=== PATIENT | male | born 1970 | race Caucasian/White ===

== ENCOUNTER 2020-01-01 09:11 | Emergency (ER) | payer MEDICAID, MEDICARE ==
[~2020-01-01] VITALS: Ht 167.6 cm; Wt 84.9 kg
[2020-01-01] MEDS ORDERED: ONDANSETRON 2MG/ML, 2ML IVPush ONE (09:30)
[2020-01-01] MEDS ORDERED: MORPHINE SULFATE 4 MG/ML, 1ML IVPush PRN (09:30)
[2020-01-01] MEDS ORDERED: SODIUM CHLORIDE FLUSH 10ML SYR IVF ONE (09:30)
[2020-01-01] MEDS ORDERED: KETOROLAC 30 MG/1 ML IVPush ONE (09:30)
[2020-01-01] MEDS ORDERED: ONDANSETRON 2MG/ML, 2ML ONE (09:46)
[2020-01-01] MEDS ORDERED: KETOROLAC 30 MG/1 ML ONE (09:46)
[2020-01-01] MEDS ORDERED: MORPHINE SULFATE 4 MG/ML, 1ML ONE (09:46)
--- NOTE | 2020-01-01 10:00 | NUR ---
ATTEMPTING TO START IV AND PT CRYING STATING "IT JUST FUCKING HURTS" JERKED ARM AND IV INFILTRATED, RN REQUESTED PT STAY STILL, PT STATED "JUST DO YOUR FUCKING JOB YOU HAVE A ROAD MAP, MY VEINS ARE HUGE", RN EDUCATED PT HE STILL NEEDED TO STAY STILL TO ESTABLISH IV, PT REFUSING ANY IV EXCEPT A "TINY ONE BECUASE IT FUCKING HURTS". IV ESTABLISHED ON 2ND ATTEMPT AND PT MEDICATED PER DEC.
[2020-01-01 10:02] LABS: BASOPHILS # (AUTO) 0.05 x10^3/uL (0-0.1); BASOPHILS % (AUTO) 0 % (0-1); EOSINOPHILS # (AUTO) 0.08 x10^3/uL (0-0.4); EOSINOPHILS % (AUTO) 1 % (1-7); LYMPHOCYTES # (AUTO) 1.45 x10^3/uL (1-3.4); LYMPHOCYTES % (AUTO) 12 % (22-44); MD NO; MEAN CORPUSCULAR HEMOGLOBIN 30.5 pg (27.5-34.5); MEAN CORPUSCULAR HGB CONC 33.5 g/dL (33.2-36.2); MEAN CORPUSCULAR VOLUME 91.1 fL (81-97); MEAN PLATELET VOLUME 7.1 fL (7.4-10.4); MONOCYTES # (AUTO) 0.84 x10^3/uL (0.2-0.8); MONOCYTES % (AUTO) 7 % (2-9); NEUTROPHILS # (AUTO) 9.96 x10^3/uL (1.8-6.8); NEUTROPHILS % (AUTO) 80 % (42-75); PLATELET COUNT 277 x10^3/uL (130-400); RED BLOOD COUNT 5.07 x10^6/uL (4.38-5.82); RED CELL DISTRIBUTION WIDTH 14.2 % (9.4-14.8)
[2020-01-01 10:14] LABS: ALBUMIN 3.6 g/dL (3.4-5.0); ANION GAP 8 mmol/L (5-15); CALCIUM 8.5 mg/dL (8.5-10.1); CHLORIDE 107 mmol/L (98-107)
[2020-01-01 10:18] LABS: ALANINE AMINOTRANSFERASE 67 U/L (12-78); ALKALINE PHOSPHATASE 159 U/L (45-117); BILIRUBIN,TOTAL 0.4 mg/dL (0.2-1.0); CREATININE 1.51 mg/dL (0.7-1.3); TOTAL PROTEIN 7.9 g/dL (6.4-8.2)
[2020-01-01 11:09] LABS: MICROSCOPIC INDICATED
[2020-01-01 11:25] LABS: CULTURE INDICATED? YES
[2020-01-01 11:32] VITALS: BP 141/99
== END 2020-01-01 12:27 | disposition home or self-care (01) ==
LOC: ED 09:40
DX: N20.1 Calculus of ureter (principal); R11.0 Nausea
CPT/HCPCS: 36415; 74176; 80053; 81001; 83690; 85025; 87086; 96374; 96375; 99284; J1885; J2270; J2405